=== PATIENT | male | born 1940 | race Caucasian/White ===

== ENCOUNTER 2022-08-23 15:12 | Emergency (ER) | payer MEDICARE ==
[2022-08-23] MEDS ORDERED: Doxycycline 100 MG Cap PO ONE (17:32)
[2022-08-23] MEDS ORDERED: Cephalexin 250 MG Cap PO ONE (17:33)
== END 2022-08-23 18:16 | disposition home or self-care (01) ==
LOC: JP.ED 15:12
DX: L03.115 Cellulitis of right lower limb (principal); I73.9 Peripheral vascular disease, unspecified; B35.3 Tinea pedis; I25.2 Old myocardial infarction; J44.9 Chronic obstructive pulmonary disease, unspecified; F17.210 Nicotine dependence, cigarettes, uncomplicated; Z88.0 Allergy status to penicillin; Z95.1 Presence of aortocoronary bypass graft; Z79.82 Long term (current) use of aspirin; Z79.02 Long term (current) use of antithrombotics/antiplatelets; Z79.899 Other long term (current) drug therapy
CPT/HCPCS: 36415; 80048; 82040; 85025; 86140; 93971; 99284; A9270; 99283